=== PATIENT | male | born 1950 | race Caucasian/White ===

== ENCOUNTER → 2019-01-27 06:22 | Outpatient (CLI) | payer MEDICARE, OTHER, SELFPAY ==
--- NOTE | 2019-01-27 | DI.MRI.S_ITS ---
PROCEDURE: MR SHOULDER RT WO CON INDICATIONS: PAIN IN RIGHT SHOULDER TECHNIQUE: Noncontrast oblique coronal T2 fast spin echo with fat saturation, oblique sagittal T1 spin echo and T2 fast spin echo with fat saturation, axial T1 spin echo and T2 fast spin echo with fat saturation through the shoulder. COMPARISON: None. FINDINGS: Image quality: Excellent. Rotator cuff: Infraspinatus tendinopathy without discrete tear. Teres minor appears intact. Supraspinatus tendinopathy with low-grade bursal and articular surface fraying. Subscapularis tendinopathy and interstitial tearing. No atrophy of the rotator cuff muscles Bones and bursae: No bone marrow contusions or fractures. Moderate to severe hypertrophic acromioclavicular joint degeneration. Glenohumeral degeneration also noted Acromion demonstrates conventional anatomy, without an os acromiale. Moderate subacromial-subdeltoid bursitis. Capsule and soft tissues: Chronic posterior labral tear with adjacent segmental glenoid osseous hypertrophy and sclerosis. Superior labral tear also noted. Sub-labral foramen. Hypertrophic appearance of the anteroinferior labrum however this could be anatomic labrocapsuloligamentous variation, versus chronic tear Long head of the biceps tendon not well visualized. The rotator interval appears normal, without fibrosis. Coracohumeral ligament intact. IMPRESSION: Infraspinatus tendinopathy. Supraspinatus tendinopathy with low-grade bursal and articular surface fraying Subscapularis tendinopathy and interstitial tearing. Moderate subacromial-subdeltoid bursitis Chronic posterior labral tear, in addition to superior labral tear. Hypertrophic low signal appearance of the anteroinferior labrum however this could be anatomic variation (versus additional chronic tear) Long head biceps tendon not well visualized and could be ruptured Dictated by: Conrad Geronimo M.D. on 01/27/2019 at 9:33 Approved by: Conrad Geronimo M.D. on 01/27/2019 at 9:47
== END ==
PROVIDERS: PCP Internal Medicine; Visit Provider Internal Medicine
DX: M25.511 Pain in right shoulder (principal); M75.51 Bursitis of right shoulder; S43.431A Superior glenoid labrum lesion of right shoulder, initial encounter
CPT/HCPCS: 73221

== ENCOUNTER 2019-05-24 12:01 | Emergency (ER) | payer MEDICARE, OTHER, SELFPAY ==
[2019-05-24 12:10] VITALS: BP 183/89; PULSE 69; RESP 14; TEMP 37; O2SAT 98; BMI 28.8
--- NOTE | 2019-05-24 12:12 | ED.GENADULT ---
HPI - General Adult General Chief complaint: Diabetic Problem Stated complaint: blood glucose high per phys Time Seen by Provider: 05/24/19 12:04 Source: patient Mode of arrival: Ambulatory Limitations: no limitations History of Present Illness HPI narrative: 68-year-old male nonsmoker with history of type 2 diabetes presents because his primary care office told him to come to the emergency department. His sugars have largely been under control until the past few weeks and has numbers have been slowly creeping up in a bed in the 200s and 300. The patient has no symptoms whatsoever. He denies any headache or blurred vision. He denies any chest pain, shortness of breath or cough. He has had no fever or chills nor exposure to persons of interest for COVID-19. He has no abdominal pain nor diarrhea. Prior to practicing home quarantine the patient was much more active, raising the suspicion that perhaps his prior exercise was helping control his sugar on some level. Associated symptoms: denies other symptoms Treatments prior to arrival: none Related Data Allergies Allergy/AdvReac Type Severity Reaction Status Date / Time No Known Drug Allergies Allergy Verified 05/24/19 12:20 Review of Systems Constitutional Constitutional: Denies chills, Denies fatigue, Denies fever(s), Denies frequent falls, Denies lethargy and Denies weakness Eyes Eyes: Denies change in vision, Denies eye discharge, Denies irritation and Denies loss of vision ENT Ears, Nose, Mouth, and Throat: Denies change in voice, Denies dizziness, Denies neck pain, Denies sore throat and Denies throat swelling Cardiovascular Cardiovascular: Denies chest pain, Denies irregular heart rhythm, Denies lightheadedness, Denies palpitations, Denies dyspnea, Denies dyspnea on exertion and Denies orthopnea Respiratory Respiratory: Denies cough, Denies dyspnea, Denies dyspnea on exertion and Denies wheezing Gastrointestinal Gastrointestinal: Denies abdominal pain, Denies change in bowel habits, Denies diarrhea, Denies nausea and Denies vomiting Genitourinary Genitourinary: Denies hematuria, Denies flank pain, Denies urinary incontinence and Denies urinary urgency Musculoskeletal Musculoskeletal: Denies back pain, Denies muscle weakness, Denies neck pain, Denies numbness and Denies tingling Integumentary/Breasts Skin/Breast: Denies pruritus, Denies erythema, Denies rash and Denies wounds Neurologic Neurologic: Denies behavioral changes, Denies confusion, Denies dizziness, Denies frequent falls, Denies loss of vision, Denies numbness, Denies tingling and Denies weakness Psychiatric Psychiatric: Denies anxiety, Denies behavioral changes, Denies confusion, Denies depression, Denies homicidal ideation and Denies suicidal ideation Endocrine Endocrine: Denies fatigue, Denies flushing and Denies palpitations Hematologic/Lymphatic Hematologic/Lymphatic: Denies easy bruising Allergic/Immunologic Allergic/Immunologic: Denies urticaria, Denies throat swelling and Denies wheezing Patient History Social History Smoking Status: Unknown if ever smoked Exam Narrative Exam Narrative: GEN: AOx3 and in mild distress EYES: Pupils are equal, round, and reactive to light and accommodation. Extraoccular muscles are intact bilaterally. There is no subconjunctival hemorrhage or exudate. CHEST: Lungs are clear to auscultation bilaterally and free of wheezes, rales, or rhonchi. Heart rate is regular rhythm, there are no murmurs, clicks, rubs, or gallops. There is no chest wall tenderness. ABD: Abdomen is soft and nontender. There is no guarding or rebound. Bowel sounds are normal in all 4 quadrants. There is no mass or organomegaly. EXT: Full painless ROM of all extremities with no loss of sensation or strength. SKIN: Warm, pink, and dry. No erythema or rash Initial Vital Signs Initial Vital Signs: Vital Signs Temperature 98.6 F 05/24/19 12:10 Pulse Rate 69 05/24/19 12:10 Respiratory Rate 14 05/24/19 12:10 Blood Pressure 183/89 H 05/24/19 12:10 Pulse Oximetry 98 05/24/19 12:10 Course Vital Signs Vital signs: Vital Signs - 8 hr 05/24/19 12:10 Temperature 98.6 F Pulse Rate 69 Respiratory Rate 14 Blood Pressure 183/89 H Pulse Oximetry 98 Medical Decision Making Lab Data Labs: Point of Care Testing Glucose POC 356 Point of care testing: Point of Care Testing Glucose POC 356 MDM Narrative Medical decision making narrative: Extensive discussion with patient. He has a very reassuring story and physical exam. We discussed the unlikely event that lab work or imaging would change his disposition. We discussed making alterations in his diabetic regimen and agree that a small change, returning to his prior dosing of metformin 1000 in the morning, and current dosing of 500 at night and tracking his sugars. He understands that close follow-up with his primary care provider as indicated. He has had return precautions given, understands these precautions and has had his questions answered to his apparent satisfaction Discharge Plan Departure Patient Disposition: Home Clinical Impression: Diabetes mellitus Qualifiers: Diabetes mellitus type: type 2 Diabetes mellitus exterminator termite insulin use: without exterminator termite use Diabetes mellitus complication status: with other specified complication Qualified Code(s): E11.69 - Type 2 diabetes mellitus with other specified complication Discharge Date/Time: 05/24/19 12:37 Instructions: DI for Diabetes Type 2 Activity Restrictions/Additional Instructions: *You have been diagnosed with [hyperglycemia] *What to do: *Take medications as directed: Start taking Metformin 1000mg in the mornings, continue taking Metformin 500mg at night. Increase your activity at home. *Follow up with your primary care provider in 2-3 days, call for an appointment. Let them know you were seen in the Emergency Department and that we ask that you be seen in follow up *Return to ER if you should have any new, worsening or concerning symptoms, such as [blurred vision, chest pain, shortness of breath, nausea, vomiting, abdominal pain or other concerning symptoms ] Referrals: Yamilet Lopez [Primary Care Provider] - ED Sign-out [facility] ED Attending Katerina Attestation: I was immediately available in the department for consultation. This documentation has been reviewed and I agree with assessment and plan. Supervised by Ta Everett DO
== END 2019-05-24 12:37 | disposition home or self-care (01) ==
PROVIDERS: Emergency Provider Emergency Medicine; PCP Internal Medicine
DX: E11.65 Type 2 diabetes mellitus with hyperglycemia (principal)
CPT/HCPCS: 82962; 99281; 99282

== ENCOUNTER → 2024-04-23 10:21 | Outpatient (CLI) | payer MEDICARE, OTHER, SELFPAY ==
--- NOTE | 2024-04-23 10:27 | DI.RAD.S_ITS ---
PROCEDURE: FL ARTHROGRAM SHOULDER LT INDICATIONS: LT SHOULDER PAIN,CHRONIC RADICULAR COMPARISON: None. TECHNIQUE: The indications, alternatives, benefits, risks, and complications of the procedure were explained to the patient. Written informed consent was obtained and placed in the chart. The shoulder was examined fluoroscopically and a site for needle placement chosen for entry into the glenohumeral joint from an anterior approach. The skin was prepped and draped in a sterile fashion, and 1% lidocaine infiltrated from skin down to joint capsule. A spinal needle was inserted into the glenohumeral joint, and a small amount of iodinated contrast media injected to confirm intra-articular placement of the needle tip. This was followed by approximately 12 mL dilute solution of a gadolinium containing MR contrast agent. The needle was removed and a dressing was applied. The patient was given postprocedural instructions and sent to the MR suite for MR imaging. FINDINGS: A single fluoroscopic spot image demonstrates intra-articular location of injected iodinated contrast. IMPRESSION: Successful fluoroscopically guided administration of dilute Gadolinium solution into the shoulder joint for MR arthrogram. Dictated by: Jos Drew M.D. on 04/23/2024 at 11:40 Approved by: Jos Drew M.D. on 04/23/2024 at 11:40
--- NOTE | 2024-04-23 10:28 | DI.MRI.S_ITS ---
PROCEDURE: MR SHOULDER LT W CON INDICATIONS: LT SHOULDER PAIN,CHRONIC RADICULAR TECHNIQUE: After the administration of 12 mL of dilute intra-articular Gadolinium contrast, oblique coronal T1 and T2 spin echo with fat saturation, oblique sagittal T1 spin echo with and without fat saturation, oblique sagittal T2 fast spin echo with fat saturation, axial T1 spin echo with fat saturation through the shoulder. COMPARISON: [facility], , ID ARTHROGRAM SHOULDER LT, 04/23/2024, 10:58. FINDINGS: Image quality: Excellent. Rotator cuff: Moderate supraspinatus tendinosis with low-grade partial intrasubstance and articular sided tearing at the posterior insertion. Moderate infraspinatus tendinosis. Teres minor and subscapularis tendons are intact. Rotator cuff musculature is normal in bulk. Bones and bursae: No acute trabecular bone injury or fracture. Mild degenerative spurring in the glenoid rim. Moderate degenerative changes of the acromioclavicular joint with subchondral cystic changes and small marginal osteophytes. Trace [id number] contrast material is seen in the subacromial/subdeltoid bursa. No intra-articular loose body in the glenohumeral joint. Capsule and soft tissues: Nondisplaced tearing of the superior labrum extending from the anterior superior to posterior inferior labrum. Moderate proximal biceps long head tendinosis. Glenohumeral ligaments are intact. IMPRESSION: 1. Focal low-grade partial intrasubstance and articular sided tearing of the supraspinatus tendon at the posterior insertion. Moderate supraspinatus and infraspinatus tendinosis. 2. Moderate proximal biceps long head tendinosis. 3. Nondisplaced tearing of the superior labrum from anterior superior to posterior inferior. 4. Moderate acromioclavicular joint osteoarthrosis. 5. Trace [id number] contrast material in subacromial/subdeltoid bursa. No definite full-thickness defect is seen within the rotator cuff musculature. The fluid may be secondary to extravasation during the arthrogram injection versus an occult full-thickness tear. Approved by: Scar Mitchell M.D. on 04/24/2024 at 11:59
[2024-04-23] MEDS: LIDOCAINE 1% 20 ML INJ (11:07)
[2024-04-23] MEDS: SODIUM CHLORIDE 0.9 % 20 ML VIAL IV (11:11)
== END ==
LOC: RAD 10:26
PROVIDERS: PCP Family Medicine; Referring Provider Family Medicine; Visit Provider Family Medicine
DX: M75.112 Incomplete rotator cuff tear or rupture of left shoulder, not specified as traumatic (principal); S43.432A Superior glenoid labrum lesion of left shoulder, initial encounter; M25.512 Pain in left shoulder; M19.012 Primary osteoarthritis, left shoulder
CPT/HCPCS: 23350; 73040; 73222; A9579; Q9967

== ENCOUNTER → 2024-07-12 09:16 | Outpatient (CLI) | payer MEDICARE, OTHER, SELFPAY ==
--- NOTE | 2024-07-12 09:18 | DI.CT.S_ITS ---
PROCEDURE: CT LUNG LOW DOSE SCREENING INDICATIONS: nicotine dependence TECHNIQUE: Noncontrast 2.0-2.5 mm thick sections acquired from the pulmonary apices to the posterior costophrenic angles. 7 mm thick axial MIP, and 5 mm coronal and sagittal reformats were then acquired. For radiation dose reduction, the following was used: automated exposure control, adjustment of mA and/or kV according to patient size. COMPARISON: None. FINDINGS: Image quality: Diagnostic. Lower Neck: No enlarged lymph nodes. Thyroid: 1.5 cm left thyroid nodule. Axillae: No enlarged lymph nodes. Chest Wall: Unremarkable. Bones: Unremarkable. Lungs and Pleura: No pneumothorax or pleural effusions. Calcified granuloma. Heart: Heart size is normal. No pericardial effusion. Three-vessel coronary artery calcifications. Thoracic Vessels: The aorta and pulmonary arteries demonstrate normal size. Mediastinum and Hortencia: No enlarged lymph nodes. Esophagus: No wall thickening. No hiatal hernia. Upper Abdomen: 2.2 cm right adrenal adenoma based on Hounsfield units criteria (-2 Hounsfield unit). IMPRESSION: No suspicious pulmonary nodules. LUNG-RADS 1; continued annual screening, if eligible. Clinically Significant Non-pulmonary Findings: 1. A 1.5 cm left thyroid nodule. Recommend dedicated thyroid ultrasound. 2. Benign 2.2 cm right adrenal adenoma based on Hounsfield units criteria. [employer] recommend routine biochemical screening to exclude a functional adenoma. Dictated by: Jos Drew M.D. on 07/12/2024 at 14:25 Approved by: Jos Drew M.D. on 07/12/2024 at 14:28
== END ==
PROVIDERS: PCP Family Medicine; Referring Provider Family Medicine; Visit Provider Family Medicine
DX: F17.210 Nicotine dependence, cigarettes, uncomplicated (principal); Z12.2 Encounter for screening for malignant neoplasm of respiratory organs; I25.10 Atherosclerotic heart disease of native coronary artery without angina pectoris; D35.01 Benign neoplasm of right adrenal gland
CPT/HCPCS: 71271